=== PATIENT | female | born 1965 | race Caucasian/White ===

== ENCOUNTER → 2017-03-22 | Outpatient (CLI) | payer BC ==
[2017-03-22 12:20] LABS: BASO % 0.5 %; BASO ABS # 0.04 K/uL (0-0.2); COMPLETE YES; EOS % 2.2 %; HEMATOCRIT 29.2 % (37-47); IG% 0.3 %; LYMPH ABS # 2.41 K/uL (1.2-3.4); MEAN CELL VOLUME 82.7 fL (80-100); MEAN CORPUSCULAR HEMOGLOBIN 27.5 pg (25-34); MEAN CORPUSCULAR HGB CONC 33.2 g/dl (32-36); MONO % 6.4 %; NEUT % 59.6 %; PLATELET COUNT 332 K/uL (130-400); RED BLOOD COUNT 3.53 M/uL (4.2-5.4); WHITE BLOOD COUNT 7.78 K/uL (4.8-10.8)
[2017-03-22 12:50] LABS: THYROID STIMULATING HORMONE 2.65 uIu/ml (0.300-4.500)
== END | disposition home or self-care (01) ==
LOC: C.LAB1850 09:53
PROVIDERS: ATTEND Physician Assistant
DX: N92.0 Excessive and frequent menstruation with regular cycle (principal)

== ENCOUNTER → 2017-04-01 | Outpatient (CLI) | payer BC ==
--- NOTE | 2017-04-01 15:49 | MAMMOGRAPHY REPORT ---
BILATERAL DIGITAL SCREENING MAMMOGRAM TOMOSYNTHESIS WITH CAD: 04/01/2017 CLINICAL HISTORY: Routine screening. Patient has no complaints. TECHNIQUE: Breast tomosynthesis in addition to standard 2D mammography was performed. Current study was also evaluated with a Computer Aided Detection (CAD) system. COMPARISON: Comparison is made to exam dated: 11/22/2015 mammogram - [facility]. Only the pr ior outside 2016 exam was available for comparison. BREAST COMPOSITION: There are scattered areas of fibroglandular density in both breasts. FINDINGS: No suspicious masses, calcifications, or areas of architectural distortion are noted in ei ther breast. There has been no significant interval change compared to prior exams. There are stable postsurgical changes from bilateral reduction mammoplasty. Bilateral asymmetries are stable compare d to the 2016 exam. IMPRESSION: ACR BI-RADS CATEGORY 2: BENIGN There is no mammographic evidence of malignancy. A 1 year screening mammogram is recommended. The pa tient will receive written notification of the results. Approximately 10% of breast cancers are not detected with mammography. A negative mammographic report should not delay biopsy if a clinically suggestive mass is present. Sharron Alejo M.D. /:04/01/2017 15:24:44 Recordist Chief: Ann CABA)(Charleen), [facility] letter sent: Normal 1/2 BI-RADS Code: ACR BI-RADS Category 2: Benign
== END | disposition home or self-care (01) ==
LOC: C.MAMM 13:08
PROVIDERS: ATTEND Physician Assistant
DX: Z12.31 Encounter for screening mammogram for malignant neoplasm of breast (principal)

== ENCOUNTER → 2017-05-16 | Outpatient (CLI) | payer BC ==
[2017-05-16 09:42] LABS: BASO % 0.5 %; BASO ABS # 0.04 K/uL (0-0.2); COMPLETE YES; EOS % 1.8 %; HEMATOCRIT 36.9 % (37-47); IG% 0.4 %; LYMPH % 28.6 %; LYMPH ABS # 2.45 K/uL (1.2-3.4); MEAN CORPUSCULAR HEMOGLOBIN 27.3 pg (25-34); MEAN CORPUSCULAR HGB CONC 33.3 g/dl (32-36); MEAN PLATELET VOLUME 11.9 fL (7.4-10.4); NEUT % 63.7 %; PLATELET COUNT 248 K/uL (130-400); WHITE BLOOD COUNT 8.57 K/uL (4.8-10.8)
== END | disposition home or self-care (01) ==
LOC: C.LAB1850 08:35
PROVIDERS: ATTEND Physician Assistant
DX: N92.0 Excessive and frequent menstruation with regular cycle (principal); D50.9 Iron deficiency anemia, unspecified

== ENCOUNTER → 2017-08-01 | Outpatient (CLI) | payer BC | END | disposition home or self-care (01) | LOC: C.PATHSPEC 17:42 | PROVIDERS: ATTEND Obstetrics & Gynecology | DX: N92.0 Excessive and frequent menstruation with regular cycle (principal) ==

== ENCOUNTER 2017-08-12 07:24 | Observation (INO) | payer BC ==
[2017-08-01 14:06] VITALS: BMI 39.0
--- NOTE | 2017-08-01 14:50 | PAT Medication Instructions ---
Service Date Aug 01, 2017. Current Home Medication List No Active Prescriptions or Reported Meds Medication Instructions For Your Scheduled Surgery NOTHING TO EAT OR DRINK AFTER MIDNIGHT If you have any questions please call us at [phone] or [phone] or [phone]
[2017-08-01 15:05] LABS: BASO % 0.5 %; BASO ABS # 0.04 K/uL (0-0.2); EOS % 1.9 %; EOS ABS # 0.15 K/uL (0-0.5); HEMATOCRIT 37.8 % (37-47); HEMOGLOBIN 12.9 g/dL (12.0-16.0); IG# 0.01 K/uL (0.00-0.02); LYMPH ABS # 3.09 K/uL (1.2-3.4); MEAN CELL VOLUME 82.2 fL (80-100); MEAN CORPUSCULAR HGB CONC 34.1 g/dl (32-36); MEAN PLATELET VOLUME 10.5 fL (7.4-10.4); MONO % 5.1 %; NEUT % 53.4 %; NEUT ABS # 4.23 K/uL (1.4-6.5); PLATELET COUNT 248 K/uL (130-400); RED CELL DISTRIBUTION WIDTH CV 14.4 % (11.5-14.5); RED CELL DISTRIBUTION WIDTH SD 42.9 fL (36.4-46.3); WHITE BLOOD COUNT 7.92 K/uL (4.8-10.8)
[2017-08-12] VITALS (8 sets, daily range): BP systolic 136–154; BP diastolic 77–92; PULSE 68–96; TEMP 36.4–36.8; O2SAT 2–98; Ht 175.3 cm; Wt 121.4 kg
[~2017-08-12] VITALS: Ht 175.3 cm; Wt 121.4 kg
[~2017-08-12 07:24] MED LIST: ACETAMINOPHEN 1000 MG/100 ML IV IV ONE; CEFAZOLIN 2000MG IV PUSH 10 ML IV SCH; LACTATED RINGER'S 1000ML 1,000 ML IV SCH
[2017-08-12] MEDS ORDERED: EpHEDrine SULFATE INJ 50 MG/ML AMP IV PRN (07:30)
[2017-08-12] MEDS ORDERED: ONDANSETRON INJ 2 MG/ML 2 ML VIAL IV PRN ×2 (07:30→13:30)
[2017-08-12] MEDS ORDERED: HYDROmorphone INJ 2 MG/ML SYR/VIAL IV PRN (07:30)
[2017-08-12] MEDS ORDERED: ATROPINE SULFATE 0.1 MG/ML 5ML SYR IV PRN (07:30)
[2017-08-12] MEDS ORDERED: PHENYLEPHRINE 100MCG/ML 5ML SYR IV PRN (07:30)
[2017-08-12] MEDS ORDERED: DEXAMETHASONE SOD INJ 4 MG/ML VIAL ONE (09:54)
[2017-08-12] MEDS ORDERED: PROPOFOL IV EMULSION 10 MG/ML 20 ML VIAL IV ONE (09:54)
[2017-08-12] MEDS ORDERED: ONDANSETRON INJ 2 MG/ML 2 ML VIAL ONE ×3 (09:54→13:50)
[2017-08-12] MEDS ORDERED: MIDAZOLAM HCL 1 MG/ML 2ML VIAL ONE (09:54)
[2017-08-12] MEDS ORDERED: LIDOCAINE HCL 2% 2 ML VIAL (20MG/ML) ONE (09:54)
[2017-08-12] MEDS ORDERED: FENTANYL CITRATE INJ 50 MCG/1 ML 2 ML VIAL ONE ×2 (09:54→12:51)
[2017-08-12] MEDS ORDERED: HYDROmorphone INJ 2 MG/ML SYR/VIAL ONE (09:54)
--- NOTE | 2017-08-12 10:48 | History & Physical Bridge Note ---
H&P Re-Evaluation Bridge Note: I have examined the patient, reviewed the History & Physical and in the interval since the performance of the History & Physical I have noted the following changes of clinical significance: No changes noted
[2017-08-12] MEDS ORDERED: METHYLENE BLUE 0.5% 10 ML VIAL ONE (11:16)
[2017-08-12] MEDS ORDERED: BUPIVACAINE 0.5 % 5 MG/1 ML MPF 30ML VIAL ONE (11:16)
[2017-08-12] MEDS ORDERED: HydrALAZINE HCL 20 MG/ML VIAL ONE (12:41)
[2017-08-12] MEDS ORDERED: GLYCOPYRROLATE INJ 0.2 MG/ML VIAL ONE (12:41)
[2017-08-12] MEDS ORDERED: NEOSTIGMINE METHYLSULFATE 5 MG/5 ML SYR ONE (12:41)
[2017-08-12] MEDS ORDERED: KETOROLAC TROMETHAMINE 30 MG/ML VIAL ONE (13:09)
--- NOTE | 2017-08-12 13:24 | [facility] Post Operative Brief Note ---
Immediate Operative Summary Operative Date Aug 12, 2017. Pre-Operative Diagnosis Menorrhagia and pelvic pain in female Post-Operative Diagnosis Menorrhagia and pelvic pain in female Procedure(s) Performed Robotic Assisted Total Laparoscopic Hysterectomy, Bilateral Salpingectomy; Cystoscopy Surgeon Dr. Alec Cevallos Marine Equipment Test Engineer Surgeon(s) None Estimated Blood Loss 50 ml Findings Consistent with Post-Op Diagnosis Specimens Permanent Specimen A: Uterus, Cervix, and Bilateral Falliopian tubes Drains Petty Anesthesia Type General Complication(s) none Disposition Disposition: Recovery Room / PACU
--- NOTE | 2017-08-12 13:28 | Discharge Instructions ---
Discharge Instructions Date of Service Aug 12, 2017. Admission Reason for Admission: Menorrhagia, Pelvic Pain In Female Discharge Discharge Diagnosis / Problem: menorrhagia Discharge Goals Goal(s): Routine recovery after surgery Activity Recommendations Activity Limitations: per Instructions/Follow-up section . Instructions / Follow-Up Instructions / Follow-Up POST OPERATIVE: BOWEL FUNCTION/MEDICATIONS: 1. Constipation pain and discomfort are the most common complaints 5-7 days after surgery. Points 2-6 address the things that can help. 2. Chewing gum can help stimulate the gut and help improve digestion and motility. 3. Milk of Magnesia 1-2 times per day until return of bowel function. 4. Colace is a stool softener that helps. Taking this 2-3 times per day until bowel function returns to normal is highly recommended. 5. Dulcolax is a laxative that may be used if several days have passed without a bowel movement. Alternatively Miralax may be used daily instead. 6. Drink plenty of fluids as this will also reduce constipation. 7. Narcotic pain medications will be prescribed by your physician. They are safe to use and we encourage you to use them. If you are not allergic, ibuprofen will also be prescribed. Many patients will be able to transition off of the narcotic medications to ibuprofen by postoperative day 3. ACTIVITY RECOMMENDATIONS: 1. Get plenty of rest and listen to your body. If you are tired, take a nap. 2. You may shower, but do not take a tub bath until you see your doctor at the 2 week post operative visit. 3. Absolutely NO intercourse and nothing in the vagina until you are examined by your doctor at the 6 week visit. At that visit it will be determined when such activities can be resumed. This can range from 6-12 weeks after your surgery depending on healing time. 4. The main physical activity in the first week should be walking. By the second week you can slowly increase activity. There are no limits on walking up and down stairs. 5. Do not lift more than 5-10 lbs for 4 weeks. Remember the "one-handed rule", i.e. if you can lift something with only one hand it's likely okay. 6. Minimize area secretary like vacuuming and exercising for 4 weeks. "Overdoing it" can lead to incisions not healing, pain and vaginal bleeding , so again, listen to your body. 7. Driving can be resumed when you feel able. Do not drive within 24 hours of taking a narcotic medication. EXPECTATIONS: 1. Vaginal spotting, bleeding and discharge are common after surgery. There may even be an odor to the discharge which is often related to sutures used in the vagina. If you experience heavy vaginal bleeding, call the office number day or night [phone]. 2. Bladder discomfort is common after surgery from the catheter. This usually resolves in 1-2 weeks. 3. By the end of the 3rd or 4th week you should be feeling much better. It may take up to 6 weeks for your energy levels to return to normal. 4. Narcotic medications have side effects such as: dizziness, headache, nausea and/or vomiting. If you suspect your pain medication is causing problems, call our office and we may be able to prescribe an alternate medication. 5. The skin incisions are often covered with a liquid bandage. This will gradually peel off over time. CALL THE OFFICE IF YOU HAVE ANY OF THE FOLLOWIN. Temperature of 101 degrees or higher. 2. Severe abdominal or pelvic pain not relieved by pain medication. 3. Persistent nausea or vomiting. 4. Increased pain with urination or difficulty urinating. 5. Bright red bleeding that soaks more than 1 pad per hour. CONTACT PHONE NUMBERS: Main Office: [phone] Surgical Nurse: [phone] extension [phone] Avoid all tobacco products. If you need help to stop smoking, call [place]'s FREE QUITLINE at . This is a free call. Current Hospital Diet Patient's current hospital diet: Discharge Diet Recommended Diet: Regular Diet Procedures Procedures Performed: Robotic Assisted Total Laparoscopic Hysterectomy, Bilateral Salpingectomy; Cystoscopy Pending Studies Studies pending at discharge: no Medical Emergencies . Who to Call and When: Medical Emergencies: If at any time you feel your situation is an emergency, please call 911 immediately. . Non-Emergent Contact Non-Emergency issues call your: Creative Services Producer . . "Provider Documentation" section prepared by Anil Cevallos. . VTE Core Measure Inpt VTE Proph given/why not?: Tammie Estrada, SCD's
[2017-08-12] MEDS ORDERED: MTR600X PO (13:29)
[2017-08-12] MEDS ORDERED: OXYC-57 PO (13:29)
[2017-08-12] MEDS ORDERED: SIMETHICONE 80 MG CHEW PO PRN (13:30)
[2017-08-12] MEDS ORDERED: PROMETHAZINE HCL INJ 12.5 MG in SODIUM CHLORIDE 0.9% 50ML 50 ML IV PRN (13:30)
[2017-08-12] MEDS ORDERED: MAGNESIUM HYDROXIDE SUSP 30 ML UDC PO PRN (13:30)
[2017-08-12] MEDS ORDERED: IBUPROFEN 600 MG TAB PO PRN (13:30)
[2017-08-12] MEDS ORDERED: BISACODYL 10 MG SUPP PR PRN (13:30)
[2017-08-12] MEDS ORDERED: MEPERIDINE HCL 50 MG/ML CARP IV PRN ×2 (13:30)
[2017-08-12] MEDS ORDERED: OXYCODONE/ACETAMINOPHEN 5-325 TAB PO PRN (13:30)
[2017-08-12] MEDS ORDERED: KETOROLAC TROMETHAMINE 30 MG/ML VIAL IV. PRN (13:30)
[2017-08-12] MEDS ORDERED: ZOLPIDEM TARTRATE 5 MG TAB PO PRN (13:30)
[2017-08-12] MEDS ORDERED: PROMETHAZINE HCL INJ 25 MG in SODIUM CHLORIDE 0.9% 50ML 50 ML IV PRN (13:30)
[2017-08-12] MEDS ORDERED: ACETAMINOPHEN 325 MG TAB PO PRN (13:30)
[2017-08-12] MEDS ORDERED: HYDROmorphone INJ 1 MG/ML SYR ONE (13:50)
--- NOTE | 2017-08-12 13:51 | OPERATIVE REPORT ---
DATE OF OPERATION: 08/12/2017 PREOPERATIVE DIAGNOSIS: Menorrhagia. POSTOPERATIVE DIAGNOSIS: Menorrhagia. PROCEDURE: Robotically assisted total laparoscopic hysterectomy, bilateral salpingectomy, cystoscopy. SURGEON: Dr. Cevallos. HUMIDIFIER ATTENDANT: None. ESTIMATED BLOOD LOSS: 50 mL. FINDINGS: Consistent with postoperative diagnosis. SPECIMENS: Permanent specimen of uterus, cervix and bilateral fallopian tubes. DRAINS: Petty catheter. ANESTHETIC: General. COMPLICATIONS: None. DISPOSITION: Recovery. OPERATION AND FINDINGS: DESCRIPTION OF PROCEDURE: The patient was given a general anesthetic, prepped and draped in dorsolithotomy position, given preoperative antibiotics, intermittent compression stockings placed in her legs. Petty catheter placed in her bladder and V-Care sewn into her cervix. Gloves changed and a supraumbilical incision made with scalpel using direct cutdown technique. We cut down through subcutaneous fat to the fascia, splitting the rectus muscles and entering the peritoneal cavity without difficulty. Blunt-tipped Darin trocar placed, balloon inflated to stabilize the ports. CO2 gas used to inflate the abdomen. FINDINGS: Upper abdomen normal, no sign of visceral organ injury. Pelvis appeared normal as well. After deep Trendelenburg position no evidence of endometriosis. Both ovaries appeared normal, the uterus and adnexa. Two robotic ports, 1 in the left, 1 in the right placed. Arm #1 was monopolar sailaja, arm #2 was bipolar [place], left upper quadrant 11 mm bladeless accessory port then placed as well. Robot docked while the patient was in deep Trendelenburg position. The procedure was done by manipulating the uterus with the V-Care, identifying ureters on both sides which followed a normal course. Fallopian tubes were carefully removed in the usual fashion and then removed through the accessory port. Blood supply distal to the ovary on the left side first was then coagulated and cut. Monopolar sailaja used to transect and then same process with the round ligament. Uterine vessels were skeletonized. Bladder flap sharply dissected away and then uterine vessels coagulated with the bipolar [place] and then cut with monopolar sailaja. Same process was followed on the right side until we were able to make an anterior colpotomy. The bladder flap was well dissected away, we stayed medial of our uterine vessel ligations. Once the colpotomy was completed, uterus was removed through the vagina and a glove with a sponge in it was placed in the vagina for pneumoperitoneum. There was no bleeding pumper from the right uterine vessel. This was grasped with the bipolar [place] and coagulated. Hemostasis was excellent at this stage. After generous irrigation and suction, hemostasis was excellent using a 2-0, 90-day 12 inch V-Loc suture we then closed the cuff from right to left, back left to right, ensuring at least 1 cm full thickness vaginal mucosa bites. Suture was cut so there was no tail. Needle removed through the accessory port Tisseel 4 mL applied. Hemostasis was excellent. Cystoscopy was performed revealing a normal bladder, no sutures seen, no defects and good strong jets of bluish green dye from left and right ureter openings. A new Petty catheter was then placed. Note, the glove and sponge were removed from the vagina. There was minimal vaginal bleeding. Gloves changed and then the robot was undocked. Ports removed. Instruments removed. Incisions injected with 0.5% Marcaine. Fascia closed carefully with 0 Vicryl. Several [id number] sutures in the umbilical incision and left upper quadrant incisions and 4-0 subcuticular Monocryl and Dermabond. Sponge and instrument counts correct. I attest to the content of the Intraoperative Record and any orders documented therein. Any exceptions are noted below. MTDD
[2017-08-12] MEDS ORDERED: IV FLUIDS COMPLETED PRN (14:15)
--- NOTE | 2017-08-12 14:24 | Anesthesiology Progress Note ---
Anesthesia Post Op Note Date & Time Aug 12, 2017 at 14:24 Vital Signs Pain Intensity: 0 Vital Signs Past 12 Hours Date Time Temp Pulse Resp B/P (MAP) Pulse Ox O2 Delivery O2 Flow Rate FiO2 08/12/17 14:15 36.5 80 13 141/80 93 Nasal Cannula 4 08/12/17 14:05 85 16 153/80 93 Nasal Cannula 4 08/12/17 13:55 87 15 155/85 93 Nasal Cannula 4 08/12/17 13:45 88 11 153/91 95 Nasal Cannula 4 08/12/17 13:35 36.5 99 24 163/94 96 Nasal Cannula 4 08/12/17 07:54 36.6 79 18 141/91 (108) 98 Room Air Notes Mental Status: alert / awake / arousable, participated in evaluation Pt Amnestic to Procedure: Yes Nausea / Vomiting: adequately controlled Pain: adequately controlled Airway Patency, RR, SpO2: stable & adequate BP & HR: stable & adequate Hydration State: stable & adequate Anesthetic Complications: no major complications apparent
[2017-08-12] MEDS ORDERED: ROCURONIUM BROMIDE 10 MG/ML 5 ML VIAL IV ONE (14:49)
[2017-08-12] MEDS ORDERED: LACTATED RINGER'S 1000ML 1,000 ML IV SCH (15:28)
[2017-08-12 20:38] LABS: HEMATOCRIT 38.5 % (37-47); HEMOGLOBIN 13.2 g/dL (12.0-16.0)
[2017-08-12] MEDS: DOCUSATE SODIUM 100 MG CAP PO SCH (21:00)
[2017-08-13] VITALS (7 sets, daily range): BP systolic 140–212; BP diastolic 82–112; PULSE 80–87; TEMP 37–37.3; O2SAT 94–95
[2017-08-13] MEDS ORDERED: NURSING VERBAL MED ORDER ONE (04:00)
[2017-08-13] MEDS ORDERED: LABETALOL HCL 200 MG TAB PO ONE (04:00)
[2017-08-13] MEDS: OXYCODONE/ACETAMINOPHEN 5-325 TAB PO PRN ×2 (05:08→10:29)
[2017-08-13 06:21] LABS: HEMATOCRIT 37.1 % (37-47); HEMOGLOBIN 12.6 g/dL (12.0-16.0); IG# 0.04 K/uL (0.00-0.02); LYMPH % 9.3 %; LYMPH ABS # 1.24 K/uL (1.2-3.4); MEAN CELL VOLUME 82.3 fL (80-100); MEAN CORPUSCULAR HEMOGLOBIN 27.9 pg (25-34); MEAN PLATELET VOLUME 11.2 fL (7.4-10.4); MONO % 4.6 %; MONO ABS # 0.61 K/uL (0.11-0.59); NEUT % 85.8 %; NEUT ABS # 11.46 K/uL (1.4-6.5); PLATELET COUNT 257 K/uL (130-400); RED CELL DISTRIBUTION WIDTH CV 14.5 % (11.5-14.5); RED CELL DISTRIBUTION WIDTH SD 43.5 fL (36.4-46.3); WHITE BLOOD COUNT 13.35 K/uL (4.8-10.8)
--- NOTE | 2017-08-13 06:21 | Progress Note ---
Progress Note Date of Service Aug 13, 2017. Progress Note called by nursing with elevated bps for pt. pod #1, recovering well except for lisa and high bp 200s/110. she has history of htn "years ago" per pt and used losarten but cannot recall dose. She was given 200mg labetalol po by me and at first bps decreased to 150/90 but within a few hours elevated again. still with lisa, tried pain meds. consulted [facility] hospitalist for management of new onset htn. spoke to dr mansfield about patient.
[2017-08-13] MEDS ORDERED: HydrALAZINE HCL 20 MG/ML VIAL IV. PRN (06:45)
[2017-08-13] MEDS: DOCUSATE SODIUM 100 MG CAP PO SCH (09:19)
--- NOTE | 2017-08-13 10:22 | Consultant Recommendations ---
Technologies Division Chair Recommendations Date of Service Aug 13, 2017. Technologies Division Chair Recommendations Patient is seen and examined by me. Pt denies cp, sob, dizziness, palpitation and loss of consciousness. Pt denies nausea, vomiting, abdominal pain and diarrhea. Pt denies blurry vision and headache. Pt does not take BP medication at home. Pt states she was taken off losartan about a year ago, because her bp were stable Pt is currently s/p hysterectomy and has pelvic pain and discomfort. A/p: 52 year old female s/p day 1hysterectomy medicine was consulted for management of HTN w/o symptoms. Elevated BP etiology is multifactorial and may be secondary to stress of surgery and pain. Pt Bp trends were reviewed and her BP stabilizes to pre op BP. Plan: -- advise patient to monitor her BP at home for 1 week and record the readings. -- appointment with her PCP with in 2 week o go over these BP trends.. -- we will not orellana to start antihypertensive at this time. -- advise patient to lose weight and exercise. -- okay to discharge from medicine stand. Thank for allowing us to participate in this pleasant patient care and a kind referral. Anselmo Phoenix MD [facility] Medicine.
== END 2017-08-13 10:50 | disposition home or self-care (01) ==
LOC: C.ACU 07:24 → C.MS4N 07:40 → ENRESERV 14:06
PROVIDERS: ADMIT Obstetrics & Gynecology; ATTEND Obstetrics & Gynecology
DX: N92.0 Excessive and frequent menstruation with regular cycle (principal); R10.2 Pelvic and perineal pain; R51 Headache; I10 Essential (primary) hypertension; D50.9 Iron deficiency anemia, unspecified; Z82.49 Family history of ischemic heart disease and other diseases of the circulatory system; Z82.5 Family history of asthma and other chronic lower respiratory diseases; Z83.3 Family history of diabetes mellitus; Z80.42 Family history of malignant neoplasm of prostate; Z80.3 Family history of malignant neoplasm of breast
CPT/HCPCS: 58571; S2900